=== PATIENT | female | born 1940 | race Caucasian/White ===

== ENCOUNTER 2020-08-04 22:12 | Emergency (ER) | payer MEDICARE, OTHER ==
--- NOTE | 2020-08-04 23:07 | EDM.PDOC ---
ED HPI GENERAL MEDICAL PROBLEM - General Chief Complaint: Chest Pain Stated Complaint: Chest pain, jaw pain Time Seen by Provider: 08/04/20 22:49 - History of Present Illness INITIAL COMMENTS - FREE TEXT/NARRATIVE: Yanely is an 80 y/o female who comes to the ER from the residential after she reported some pain in the right side of her face and neck. The pain is gone at this time when [employer] assesses her. The pain started in her teeth and right cheek region and then went down into her neck. She apparently had the same pain last night at the residential that started the same way, but went down in to her chest. Last night the pain went away with acetaminophen and a hot pack. No fevers. The pain started randomly when she was lying in bed. No SOB. Since the pain was the same again tonight, staff were concerned and sent patient here for evaluation. She did have a +COVID test on 07/08/2020 and was admitted at a [facility]. She was admitted to the [facility] on 07/31/2020. RN rubbed patient's neck region prior to [employer] arriving to bedside and patient reported relief from the pain after massage. - Related Data Allergies Allergy/AdvReac Type Severity Reaction Status Date / Time diflunisal [From Dolobid] Allergy Rash Verified 07/19/20 18:39 morphine Allergy Lethargy Verified 07/19/20 18:39 rosuvastatin calcium Allergy Edema Verified 07/19/20 18:39 [From Crestor] sulindac [From Clinoril] Allergy Headache Verified 07/19/20 18:39 acetaminophen AdvReac Nausea Verified 07/20/20 11:36 [From Darvocet-N 100] hydrocodone AdvReac Nausea and Verified 07/20/20 11:36 Vomiting indomethacin [From Indocin] AdvReac Nausea and Verified 07/20/20 11:36 Vomiting indomethacin sodium AdvReac Nausea and Verified 07/20/20 11:36 [From Indocin] Vomiting oxybutynin AdvReac Nausea Verified 07/20/20 11:36 propoxyphene napsylate AdvReac Nausea Verified 07/20/20 11:36 [From Darvocet-N 100] Home Meds: Home Meds Acetaminophen [Tylenol Extra Strength] 500 mg PO Q4H PRN 03/02/14 [History] Levothyroxine Sodium [Synthroid] 150 mcg PO DAILY 03/02/14 [History] Potassium Chloride 10 meq PO DAILY 03/02/14 [History] amLODIPine [Norvasc] 5 mg PO DAILY 03/02/14 [History] metFORMIN [Glucophage] 1,000 mg PO BIDM 03/02/14 [History] Ferrous Gluconate 324 mg PO DAILY 04/28/15 [History] Cinnamon Bark [Cinnamon] 500 mg PO BEDTIME 02/09/17 [History] Denosumab [Prolia] 60 mg SUBCUT Q180D 02/09/17 [History] Green Tea Kinsey Extract [Green Tea] 1 each PO QPM 02/09/17 [History] Magnesium Oxide [Magnesium] 500 mg PO BID 02/09/17 [History] Pravastatin [Pravachol] 20 mg PO BEDTIME 02/09/17 [History] traMADol HCl [Tramadol HCl] 50 mg PO Q6H PRN 02/09/17 [History] Acetaminophen [Tylenol Extra Strength] 500 mg PO Q4H 08/18/19 [History] Apixaban [Eliquis] 5 mg PO BID 08/18/19 [History] Ascorbic Acid [Vitamin C] 500 mg PO DAILY 08/18/19 [History] Biotin 5 mg PO DAILY 08/18/19 [History] Cevimeline HCl 30 mg PO TID 08/18/19 [History] Cholecalciferol (Vitamin D3) [Vitamin D3] 1,000 units PO DAILY 08/18/19 [History] Cyanocobalamin (Vitamin B-12) [Vitamin B-12] 1 tab PO DAILY 08/18/19 [History] Fesoterodine Fumarate [Toviaz] 8 mg PO BEDTIME 08/18/19 [History] Folic Acid 1 mg PO DAILY 08/18/19 [History] Gabapentin [Neurontin] 300 mg PO BID 08/18/19 [History] Isosorbide Mononitrate [Imdur] 30 mg PO DAILY 08/18/19 [History] Metoprolol Succinate [Toprol XL] 25 mg PO DAILY 08/18/19 [History] Pyridoxine HCl (Vitamin B6) [Vitamin B-6] 100 mg PO DAILY 08/18/19 [History] Sacubitril/Valsartan [Entresto 24 mg-26 mg Tablet] 1 tab PO BID 08/18/19 [History] Sennosides/Docusate Sodium [Senna-Docusate Sodium Tablet] 1 tab PO BID PRN 08/18/19 [History] Torsemide 20 mg PO DAILY 08/18/19 [History] cephALEXin [Keflex] 500 mg PO Q8H 10 Days #30 cap 08/18/19 [Rx] cycloSPORINE [Restasis] 1 drop EYEBOTH BID 08/18/19 [History] Rutin/Hesp/Bioflav/C/[id number] [Bioflex] 1 each PO BID 07/19/20 [History] Past Medical History Cardiovascular History: Reports: Afib, CAD, Heart Murmur, High Cholesterol, Hypertension Genitourinary History: Reports: Urinary Incontinence Musculoskeletal History: Reports: Arthritis, Osteoporosis Neurological History: Reports: Neuropathy, Peripheral Psychiatric History: Reports: Depression Endocrine/Metabolic History: Reports: Diabetes, Type II, Hypothyroidism Hematologic History: Reports: Anticoagulation Therapy - Past Surgical History HEENT Surgical History: Reports: Cataract Surgery, Tonsillectomy Musculoskeletal Surgical History: Reports: Knee Replacement, Shoulder Replacement, Other (See Below) Social & Family History - Family History Cardiac: Reports: Hypertension - Caffeine Use Caffeine Use: Reports: Tea - Living Situation & Occupation Living situation: Reports: , Alone Occupation: Retired Review of Systems - Review of Systems Review Of Systems: See Below Constitutional: Reports: No Symptoms Eyes: Reports: No Symptoms Ears: Reports: No Symptoms Nose: Reports: No Symptoms Mouth/Throat: Reports: No Symptoms Respiratory: Reports: No Symptoms Cardiovascular: Reports: No Symptoms GI/Abdominal: Reports: No Symptoms Genitourinary: Reports: No Symptoms Musculoskeletal: Reports: Neck Pain (right sided) Skin: Reports: No Symptoms Neurological: Reports: No Symptoms Psychiatric: Reports: No Symptoms ED EXAM, GENERAL - Physical Exam Exam: See Below General Appearance: Alert, WD/WN, No Apparent Distress (Elderly female) Ears: Hearing Grossly Normal Nose: Normal Inspection, Normal Mucosa Throat/Mouth: Normal Voice Head: Atraumatic, Normocephalic Neck: Tender Lateral (right sided neck with palpation and muscle tightness noted) Respiratory/Chest: No Respiratory Distress, Normal Breath Sounds, Chest Non-Tend er, Other (Diminished, no SOB) Cardiovascular: Normal Peripheral Pulses, Regular Rate, Rhythm, No Murmur GI/Abdominal: Normal Bowel Sounds, Soft, Non-Tender, No Mass (Female) Exam: Deferred Rectal (Female) Exam: Deferred Extremities: Normal Capillary Refill, Other (note ecchymosis to right anterior leg below knee region) Neurological: Alert, Oriented, CN II-XII Intact Psychiatric: Normal Affect, Normal Mood Skin Exam: Warm, Dry, Intact, Normal Color Lymphatic: No Adenopathy EKG INTERPRETATION EKG Date: 08/04/20 Time: 22:23 Rhythm: NSR Rate (Beats/Min): 80 [place]: Normal P-Wave: Present QRS: LBBB ST-T: Normal QT: Normal Comparison: NA - No Prior EKG EKG Interpretation Comments: SR with BBB Course - Vital Signs Text/Narrative:: 2249 The patient was seen by the [employer]. EKG was done by nurse. When [employer] saw scotty ent she was pain free. She had been given ASA in the ambulance on the way to the ER. Labs ordered. 2354 Patient remains pain free at this time. Labs reviewed and no acute findings. Troponin neg tonight and pain was present 24 hours ago. No change in EKG, so doubt this is cardiac in nature. Suspect musculoskeletal pain in neck and face as cause of discomfort. Will send back to the [facility] tonight and advise APAP and warm packs as needed. She left the ER in stable condition with EMS for return to [facility]. - Orders/Labs/Meds Orders: Active Orders 24 hr Category Date Time Status EKG Documentation Completion [RC] STAT Care 08/04/20 22:55 Active Chest 1V Frontal [CR] Stat Exams 08/04/20 22:57 Ordered COMPREHENSIVE METABOLIC PN,CMP [CHEM] Stat Lab 08/04/20 23:08 Received INR,PT,PROTHROMBIN TIME [COAG] Stat Lab 08/04/20 23:08 Received TROPONIN I [CHEM] Stat Lab 08/04/20 23:08 Received Labs: Laboratory Tests 08/04/20 Range/Units 23:08 WBC 5.2 (4.0-10.0) x10^3/uL RBC 3.54 L (4.00-5.50) x10^6/uL Hgb 10.9 L (12.0-16.0) g/dL Hct 33.2 (33.0-47.0) % MCV 93.8 H (78.0-93.0) fL MCH 30.8 (26.0-32.0) pg MCHC 32.8 (32.0-36.0) g/dL RDW Coeff of Bryon 14.3 (10.0-15.0) % Plt Count 134 (130-400) x10^3/uL Add Manual Diff Yes Neutrophils % (Manual) 60 (50-80) % Band Neutrophils % 7 H (0-6) % Lymphocytes % (Manual) 22 L (25-50) % Monocytes % (Manual) 10 (2-11) % Eosinophils % (Manual) 1 (0-4) % Platelet Estimate Decreased L Anisocytosis 1+ slight H - Radiology Interpretation Free Text/Narrative:: CR Chest 1V=cardiomegaly, note pulmonary edema with left sided pleural effusion (See final report) Departure - Departure Time of Disposition: 00:04 Disposition: DC/Tfer to SNF 03 Condition: Good Clinical Impression: Musculoskeletal disorder of neck - Discharge Information *PRESCRIPTION DRUG MONITORING PROGRAM REVIEWED*: Not Applicable *COPY OF PRESCRIPTION DRUG MONITORING REPORT IN PATIENT CHEIKH: Not Applicable Instructions: Nonspecific Chest Pain, Adult, [id number] Forms: ED Department Discharge - My Orders Last 24 Hours: My Active Orders 08/04/20 22:55 EKG Documentation Completion [RC] STAT 08/04/20 22:57 Chest 1V Frontal [CR] Stat 08/04/20 23:08 COMPREHENSIVE METABOLIC PN,CMP [CHEM] Stat INR,PT,PROTHROMBIN TIME [COAG] Stat TROPONIN I [CHEM] Stat - Assessment/Plan Last 24 Hours: My Active Orders 08/04/20 22:55 EKG Documentation Completion [RC] STAT 08/04/20 22:57 Chest 1V Frontal [CR] Stat 08/04/20 23:08 COMPREHENSIVE METABOLIC PN,CMP [CHEM] Stat INR,PT,PROTHROMBIN TIME [COAG] Stat TROPONIN I [CHEM] Stat Assessment:: 1)Musculoskeletal Neck Pain Plan: -Use acetaminophen as needed for the neck/face discomfort -Apply warm packs as needed -Follow up with Dr Vazquez as needed -Return to the ER if symptoms persist or any other concerns
[2020-08-04 23:37] LABS: CHLORIDE,CL 103 mmol/L (98-107); SODIUM,NA 139 mmol/L (136-145)
[2020-08-04 23:38] LABS: ANION GAP 10.8 mmol/L (10-20)
[2020-08-05 04:30] VITALS: BP 120/54; PULSE 74
--- NOTE | 2020-08-05 08:35 | CR ---
[id number] RAD/RAD Chest Portable EXAM: RAD Chest Portable INDICATION: Chest pain. COMPARISON: None. DISCUSSION: Cardiomegaly and central vascular congestion. Left-sided pleural effusion with basal parenchymal opacification. Differential diagnosis includes atelectasis and pneumonia. Right lung is clear. IMPRESSION: As above. Arash Franklin MD 08/05/20 0834 Thank you for allowing us to participate in the care of your patient.
== END 2020-08-05 00:28 ==
LOC: VM.ED 22:12
DX: M53.82 Other specified dorsopathies, cervical region (principal); I48.91 Unspecified atrial fibrillation; I25.10 Atherosclerotic heart disease of native coronary artery without angina pectoris; E78.00 Pure hypercholesterolemia, unspecified; I10 Essential (primary) hypertension; M19.90 Unspecified osteoarthritis, unspecified site; E11.42 Type 2 diabetes mellitus with diabetic polyneuropathy; E03.9 Hypothyroidism, unspecified; F32.9 Major depressive disorder, single episode, unspecified; J90 Pleural effusion, not elsewhere classified; Z88.5 Allergy status to narcotic agent; Z88.8 Allergy status to other drugs, medicaments and biological substances; Z88.6 Allergy status to analgesic agent; Z79.84 Long term (current) use of oral hypoglycemic drugs; Z79.01 Long term (current) use of anticoagulants; Z79.899 Other long term (current) drug therapy
CPT/HCPCS: 36415; 71045; 80053; 84484; 85025; 85610; 93005; 93010; 99284; 99285-25